=== PATIENT | female | born 1950 | race Caucasian/White ===

== ENCOUNTER → 2017-04-02 | Outpatient (CLI) | payer MEDICARE, BC ==
--- NOTE | ~2017-04-02 | MR104 ---
[facility] A Service of [facility] & [facility] RADIOLOGY TEXT RESULTS PATIENT: MICHAEL PLUNKETT LOCATION: [facility] : 48 UNIT #: [id number] AGE: [address]: DENNISE BRIGGS PA-C SEX: F ORDER DR: [id number] [facility] [address] [place], [place] [address] [id number] O MR#: [id number] #: [id number] NAME: MICHAEL PLUNKETT : 1950 SEX: F STUDY DATE/TIME: 04/02/2017 7:02 UNIT: [facility] ROOM: STUDY DESCRIPTION: MR Knee Wo Contrast Rt Attending Physician: Dennise Briggs Pa-C Referring Physician: Dennise Briggs Pa-C Ordering Physician: Physician Non-Staff Primary Care Physician: Joseline Barrett M.D. MRI CENTER REPORT This report is preliminary unless electronic signature is present. EXAM MRI of the right knee without contrast HISTORY 67-year-old female complains of chronic right knee pain for 2-3 years, no specific injury. Anterior and posterior knee pain. COMPARISON Right knee films 03/27/2017 FINDINGS Multiplanar, multiecho imaging was performed of the right knee utilizing a high-field magnet and dedicated protocol. Examination demonstrates tricompartment osteoarthritis of the knee. Questionable loose body adjacent to the tibial insertion of the PCL measuring about 6 mm. There may be a second, smaller loose body adjacent to the larger one measuring about 4 mm. There is extensive xuth-ni-wjwlvacu grade chondromalacia within the medial femoral condyle, with a questionable focus of developing high-grade chondromalacia along the posterior weightbearing aspect of the medial femoral condyle. No subchondral edema. In the lateral compartment, there is moderate high-grade chondromalacia posterior weightbearing aspect lateral femoral condyle with a trace amount of subchondral edema. Probable small focus of grade IV chondromalacia lateral tibial plateau, measuring about 5 mm, with a small amount of subchondral edema. In the patellofemoral compartment, high-grade chondromalacia noted along the median ridge and extending into the lateral patellar facet and also along the medial patellar facet. Diffuse, moderate-grade trochlear chondromalacia. Medial and lateral menisci appear intact. There is some degenerative fraying along the inner margin and undersurface of the mid body segment of the lateral meniscus, but no definitive tear. Anterior and posterior cruciate ligaments appear intact. The collateral ligaments and extensor STS. [facility] A Service of [facility] RADIOLOGY TEXT RESULTS PATIENT: MICHAEL PLUNKETT [facility] UNIT #: [id number] AGE: [address]: DENNISE BRIGGS PA-C SEX: F ORDER DR: mechanism are unremarkable. There is a well-defined cystic lesion within the soft tissues along the medial aspect of the knee, adjacent to the proximal aspect of the medial femoral condyle. This measures about 1.4 cm. I suspect this represents a ganglion cyst. IMPRESSION 1. 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 Small focus of high-grade chondromalacia also noted lateral tibial plateau with a trace amount of subchondral edema. 2. Degenerative fraying of the mid body segment of the lateral meniscus, but no defined tear. 3. Small knee effusion with several suspected loose bodies posterior aspect medial compartment. Dictated by... Tunde Nguyen M.D. THIS IS AN ELECTRONICALLY VERIFIED REPORT Tunde Nguyen M.D. at 04/03/2017 4:46 PM CELESTINA/jacklyn TD: 04/02/2017 14:56 JOB #: [id number] MRI CENTER REPORT Page 1 of 1 COPY
== END | disposition home or self-care (01) ==
LOC: CMRI 06:40
DX: M25.561 Pain in right knee (principal); M17.11 Unilateral primary osteoarthritis, right knee; M22.41 Chondromalacia patellae, right knee
CPT/HCPCS: 73721